=== PATIENT | male | born 1935 | race Caucasian/White ===

== ENCOUNTER 2020-09-19 10:12 | Inpatient (IN) | payer OTHER ==
[~2020-09-19] VITALS: Ht 182.9 cm; Wt 99.8 kg
--- NOTE | ~2020-09-19 | HC ---
[facility] [place] [address] CONSULTATION Name: KAM PÉREZ Room #: 455-P [facility]..#: [id number] Admission: 09/19/20 Attend Phys: Mic Guidry MD Discharge: Date of : 37 Report #: [id number] THIS REPORT FOR: cc: Sánchez Egan MD, Logan F. MD Smithson, David G. MD ~ DATE OF SERVICE: 09/20/2020 HISTORY OF PRESENT ILLNESS: The patient is an 84-year-old white male with a history of a prior right quadriceps ruptured tendon with subsequent total knee replacement and has had issues with a right tibial tuberosity fracture with nonunion. He was admitted and now has undergone right tibial tubercle osteotomy for prior instability with revision ORIF on 09/19/2020. He is limited to 50 pounds of weightbearing or less with a walker with a knee immobilizer and no range of motion. He had a prior left total knee replacement as well. We are seeing him in rehabilitation medicine consultation. PAST MEDICAL HISTORY: Includes right total knee replacement with revisions, left total knee replacement, insulin-dependent diabetes mellitus, peripheral neuropathy, BPH, mild asthma. He notes he has had a history of third third-degree heart block, hypertension, hyperlipidemia. MEDICATIONS: Please see the full medication listing. ALLERGIES: No known drug allergies. SOCIAL HISTORY: Lives in a house with his . No steps through the garage, but then there are 7 steps with a landing and then another 6 steps to get up to the main level. Once he gets up there, he has access to a bathroom, kitchen and can basically stay on that one floor. He notes that he has been to a detention facility in the past and absolutely does not want to return back to one. He also notes that the fire department has assisted in the past as far as getting him up to do stairs and he thinks that would likely be another possibility in the future if warranted. His is 5 feet 3 inches and could only give him some assistance. He feels that he could stay on one level as he further improves with his overall function. REVIEW OF SYSTEMS: Did not offer any current complaints of chest pain, shortness of breath or abdominal discomfort. PHYSICAL EXAMINATION: GENERAL: He is a pleasant 84-year-old white male in no obvious distress. VITAL SIGNS: Last recorded temperature 98.1, pulse 75, respirations 18, blood pressure 107/54. He is 6 feet, 220 pounds. NEUROLOGIC: Alert and pleasant, good historian. EXTREMITIES: Functional range of motion of both upper extremities, strength is [address] [address] CONSULTATION Name: KAM PÉREZ Room #: 455-P [facility] M.R.#: [id number] Admission: 09/19/20 Attend Phys: Mic Guidry MD Discharge: Date of : 37 Report #: [id number] grade 4/5. His lower extremities, he has the right lower extremity, knee immobilizer in place. He does have some decreased distal sensation of the right large toe with his peripheral neuropathy. Left lower extremity, no focal calf swelling. Appears to have good strength at least a grade 4 to 4-/5. Functionally, he is mod assist sit to stand, gait 15 feet min assist with a front-wheeled walker. Physical therapy notes that he needs to be watched closely, so he does not put too much weight on that right lower extremity. ASSESSMENT: An 84-year-old white male with the following problem list: 1. Right tibial tubercle osteotomy for prior instability, status post elective revision open reduction and internal fixation on 09/19/2020. Limited weightbearing 50 pounds with walker and a knee immobilizer and no range of motion. 2. Prior bilateral total knee replacements with three revisions of the right knee. 3. Insulin-dependent diabetes mellitus with some peripheral neuropathy. 4. Acute on chronic renal insufficiency. Last creatinine is 1.7. 5. The patient has a history of third-degree heart block. 6. Prior history of lumbar laminectomy. 7. Benign prostatic hypertrophy. 8. Mild asthma. PLAN: Occupational therapy is to evaluate. He is very motivated to improve as far as his overall functional mobility and ADLs and independence. He specifically does not desire to go to any type of detention facility. Would anticipate a short acute in-hospital inpatient rehabilitation stay to try to maximize his functional independence so he can hopefully return back to his prior living situation. He is an excellent historian and is a very motivated and very appropriate as far as maximizing his functional independence so that he can return back to the home setting. Insurance precertification issues are to be checked and we will be glad to follow along with you. By: [id number] Jose Gauthier MD /nt
[~2020-09-19 10:12] MED LIST: ATORVASTATIN CA10 MG PO; BASAGLAR K100 UNIT/1 SUBQ; CALCIUM 600 +1 EAC8 PO; FINASTERIDE5 MG PO; FLOVENT HFA12 GM INH; HYDROCHLOROTHIA25 M1 PO; METFORMIN HCL1000 MG PO; METOPROLOL SUCC50 MG PO; PRINIVIL40 MG PO; TAMSULOSIN HCL0.4 MG PO; TRULICITY1.5 MG/0.5 SUBQ
[2020-09-19 11:28] VITALS: BP 147/79
--- NOTE | 2020-09-19 13:08 | EKG ---
[address] [place] [address] ELECTROCARDIOGRAM REPORT Name: KAM PÉREZ Room #: [facility]..#: [id number] Admission: 09/19/20 Attend Phys: Mic Guidry MD Discharge: Date of : 37 Report #: [id number] [facility] Test Date: 2020-09-19 Test Time: 11:01:23 Pat Name: KAM PÉREZ Department: Room: Gender: M Custom Shoemaker: YAMILETH : 1935 Requested By: Maude Pozo Order Number: [id number] MD: Hung Adam Measurements Intervals [place] Rate: 94 P: NV: QRS: 121 QRSD: 148 T: -1 QT: 378 QTc: 473 Interpretive Statements Atrial fibrillation Nonspecific intraventricular conduction delay Minimal ST depression, anterior leads No previous ECG available for comparison Electronically Signed On 09-19-2020 13:08:34 CDT by Hung Adam [email or web address] <ELECTRONICALLY SIGNED> By: Hung Adam MD, [facility] 09/19/20 1308 1101 1101 Hung Adam MD, FACC /EPI
[2020-09-19 21:40] VITALS: BP 152/55
[2020-09-19 22:45] VITALS: BP 129/62
[2020-09-19 23:45] VITALS: BP 106/49
[2020-09-20] VITALS (7 sets, daily range): BP systolic 102–145; BP diastolic 46–69
--- NOTE | 2020-09-20 01:20 | NUR ---
Pt admitted from PACU APPROX 2144 post right knee revision. A/OX4,VSS,oxygen placed at 1L/NC to keep sats>92%. C/o pain to right knee with movement 08/26,medicated with Percocet and ice applied as needed. Aquacel dsg in place. Voiding per urinal,reports has dribbling and retention. Admission assessment done w/o any problems voiced. SCDs/Hank hose in place.Denies N/V. IVF infusing via left hand. Fall precautions in place. Afib on telemetry. Will continue to monitor pt.
[2020-09-20 03:14] LABS: HEMATOCRIT 32.5 % (42.0-52.0); HEMOGLOBIN 10.7 gm/dL (14.0-18.0); MCH 31.4 pg (26.0-34.0); MCV 95.3 fL (80.0-100.0); RBC 3.41 mil/uL (4.50-6.00); RDW 14.6 % (10.5-14.5); WBC 12.1 thou/uL (4.0-11.0)
[2020-09-20 03:39] LABS: CALCIUM 8.3 mg/dL (8.5-10.1); CREATININE 1.7 mg/dL (0.7-1.3); POTASSIUM 4.6 mmol/L (3.5-5.1)
--- NOTE | 2020-09-20 12:36 | NUR ---
Pt AXOX4 IV in left hand running 126ml/hr of NS. Wearing immobilizer on right knee. Aguacell dressing to right knee is C/D/I. Wearing thigh high teds hose. SCD on left leg. Uses urinal. Pt having knee pain in PT gave pain med to give relief. at bedside. Wearing immobilizer on right leg. Needs rehab consult. Active bowel sounds. Bed in low position. Fall precautions in place. Call light within reach. Will continue to monitor throughout shift.
--- NOTE | 2020-09-20 16:50 | NUR ---
PT ADMITTED RELATED TO RT TIBIAL TURERCLE TRANSFER. CM REVIEWED CHART AND SPOKE WITH CARE TEAM. CM MET WITH PT AND SPOUSE AT BEDSIDE THIS DAY. THEY INDICATED THEY RESIDE IN A HOUSE WITH 13 STEPS TO ENTER AND NONE ONCE INSIDE. PT INDICATED HE HAS A FWW, 4WW, AND CANE FOR HOME USE. PT INDICATED HE HAD BEEN INDEPENDENT WITH [employer]. PT INDICATED HE HAD OP PT, HH, AND SHORT TERM POST ACUTE CARE STAYS IN THE PAST THIS IS THE 4TH SURGERY ON HIS KNEE. HE HAD BEEN AT [facility] AND HAD A BAD EXPERIENCE THERE. PT AND SPOUSE EXPRESSED INTEREST IN 5N ACUTE INPATIENT REHAB. CM INDICATED THAT WITH [employer] AND DX PT LIKELY WOULDN'T GET AUTH. THEY WANTED TO BE ASSESSED AND TO TRY OTHERWISE THEY WANT TO GO HOME WITH HH. PT HAS 50 WB ON LE. 5N CONSULTED. CM FOLLOWING REGARDING DC PLANNING.
--- NOTE | 2020-09-21 01:37 | NUR ---
ASSUMED PT CARE AT 1905. PT IS LERT AND ORIENTED X4. PT HAS IMMOBIILIZER TO THE RLE WITH KNEE HIGH JUDI HOSE. DRSG TO THE INCISION SITE IS C/D/I. PT HAS SCD TO THE LLE. PT'S PAIN IS BEING MANAGED BY PRN PAIN MED. PT USES URINAL AND PT IS TOLERATING RA. PT DID NOT EXPRESS ANY CONCERNS AND NO VISIBLE SIGN OF DISTRESS WAS NOTED. FALL PRECAUTIION IN PLACE WITH CALL LIGHT WITHIN REACH. WILL CONTINUE TO MONITOR.
[2020-09-21 06:09] LABS: ABSOLUTE NEUTROPHILS 5.5 thou/uL (1.4-8.2); BASOPHILS 0.8 % (0.0-2.0); EOSINOPHILS 6.2 % (0.0-3.0); HEMATOCRIT 31.1 % (42.0-52.0); HEMOGLOBIN 10.7 gm/dL (14.0-18.0); LYMPHOCYTES 12.9 % (24.0-44.0); MCHC 34.3 g/dL (28.0-37.0); MCV 96.1 fL (80.0-100.0); MONOCYTES 15.2 % (1.0-8.0); PLATELET COUNT 222 thou/uL (150-400); POLYS 64.9 % (36.0-66.0); RBC 3.23 mil/uL (4.50-6.00); RDW 15.2 % (10.5-14.5); WBC 8.5 thou/uL (4.0-11.0)
[2020-09-21 06:22] LABS: CALCIUM 7.9 mg/dL (8.5-10.1); CREATININE 1.2 mg/dL (0.7-1.3); MAGNESIUM 1.7 mg/dL (1.8-2.4); POTASSIUM 4.2 mmol/L (3.5-5.1)
[2020-09-21 07:34] VITALS: BP 152/78
--- NOTE | 2020-09-21 11:23 | NUR ---
Pt is AXOX4 has an IV 20 guage in left hand SL. Right leg has an immobilizer. Has thigh high JUDI hose on. Aquacell dressing to right knee is C/D/I. Pt is NEZ PERCE. Trying to get placement in rehabilitation facility. Bed in low position fall precautions in place. Call light within reach. Will monitor until end of shift.
--- NOTE | 2020-09-21 13:29 | NUR ---
RECEIVED CALL FROM KARMEN AT [facility]. ACUTE REHAB AUTHORIZATION HAS BEEN DENIED BY BOTTOM WHEELER D/T LACK OF MEDICAL COMPLEXITY FOR DAILY PHYSICIAN OVERSIGHT. PEER TO PEER CAN BE COMPLETED BY NOON TOMORROW, 09/22/20, BY CALLING [phone] [employer] [facility]. REF # FOR CASE IS [id number]. KARMEN'S PHONE NUMBER IS [phone]. NOTIFIED CASE MGMT OF DENIAL.
--- NOTE | 2020-09-21 14:00 | NUR ---
RD consult. Admit for right knee revision, fracture tibial tuberosity. Hx diabetes, BG well controlled. Tolerating diet, no questions. Low nutrition risk identified
--- NOTE | 2020-09-21 14:32 | NUR ---
[facility] HAD SUBMITTED FOR INSURANCE AUTH YESTERDAY AND THEY RECIEVED A DENIAL THIS AFTERNOON. THERE IS AN OPTION FOR A PEER TO PEER. CM NOTIFIED PT AND PROVIDED HIM WITH A SNF LIST FOR REVIEW CARE TEAM ARE STILL RECOMMENDING POST ACUTE CARE STAY AND PT'S CAN'T MAINTAIN 50 WB STATUS. PT INDICATED HE WAS GOING TO WAIT TO DISCUSS WITH HIS TO IF THEY WANTED PEER TO PEER DONE AND OR WHAT FACILITIES THEY MIGHT BE INTERESTED IN. CM TO FOLLOW UP WITH PT AND SPOUSE.
[2020-09-21 15:37] VITALS: BP 152/75
[2020-09-21 20:07] VITALS: BP 123/59
--- NOTE | 2020-09-22 02:45 | NUR ---
PT CARE ASSUMED WITH PT IN CHAIR WATCHING TV.PT IS A/O X4.PT IS [employer]IT[employer] [place]AN[facility].PT IS UP WITH X2 ASSIST AND NON WEIGHT BEARING ON RT LEG.PT IS ACCUCHECK .PT HAS IMMOBILIZER ON LT LE AND TEDHOSE AND DRESSING I/C/D .PT C/O PAIN AND PAIN MANAGED WITH WITH OXYCODONE.PT HAD TEMP 99.1 AND TYLENOL GIVEN WITH RELIEF TO 98.4.PT USES URINAL .WILL CONTINUE TO MONITOR
[2020-09-22 05:49] LABS: HEMATOCRIT 28.8 % (42.0-52.0); HEMOGLOBIN 9.9 gm/dL (14.0-18.0); MCH 32.8 pg (26.0-34.0); MCHC 34.4 g/dL (28.0-37.0); MCV 95.3 fL (80.0-100.0); RBC 3.02 mil/uL (4.50-6.00); RDW 14.9 % (10.5-14.5); WBC 8.8 thou/uL (4.0-11.0)
[2020-09-22 08:33] VITALS: BP 134/68
--- NOTE | 2020-09-22 12:26 | NUR ---
PEER TO PEER COMPLETED BY HEENA BUTLER NP THIS MORNING. JAVA SYBASE DEVELOPER AT [facility] UPHELD DENIAL FOR ACUTE REHAB. CASE MGMT NOTIFIED.
--- NOTE | 2020-09-22 14:25 | NUR ---
5[facility] DIE CUTTER OPERATOR CALLED PEER TO PEER THIS AFTERNOON AND DENIAL WAS UPHELD. CM CALLED [facility] AND THEY INDICATED THEY ARE FULL UNTIL FRIDAY. CM CALLED [facility] AND THEY INDICATED THEY ARE UNDER NEW OWNERSHIP AND DON'T HAVE ANY MANAGED CARE CONTRACTS AT THIS MOMENT. CM REQUESTED AND RECEIVED PERMISSION FOR PT TO SEND REFERRAL TO [facility] AND TO [facility]. REFERRALS SENT. CM FOLLOWING REGARDING DC PLANNING.
--- NOTE | 2020-09-22 19:31 | O ---
[facility] [place] [address] OPERATIVE REPORT Name: KAM PÉREZ Room #: 455-P [facility] IN M.R.#: [id number] Admission: 09/19/20 Attend Phys: Mic Guidry MD Discharge: Date of : 36 Report #: [id number] THIS REPORT FOR: cc: Sánchez Egan MD, Logan F. MD McCabe,Mic Noriega MD ~ DATE OF SERVICE: 09/19/2020 SURGEON: Mic Guidry MD. WEIGHBRIDGE OPERATOR: Snehal jones NP INDICATIONS FOR WEIGHBRIDGE OPERATOR: Assistance with fracture reduction, provisional fixation, wound exposure and closure. PREOPERATIVE DIAGNOSES: 1. Right knee tibial tubercle nonunion. 2. Status post right total knee arthroplasty with revision and tibial tubercle osteotomy for recurrent patellar instability. 3. Status post prior right knee quadriceps tendon rupture and repair. 4. Hardware failure, right knee. 5. Diabetes. POSTOPERATIVE DIAGNOSES: 1. Right knee tibial tubercle nonunion. 2. Status post right total knee arthroplasty with revision and tibial tubercle osteotomy for recurrent patellar instability. 3. Status post prior right knee quadriceps tendon rupture and repair. 4. Hardware failure, right knee. 5. Diabetes. PROCEDURES: 1. Revision open reduction internal fixation of right tibial tubercle fracture. 2. Nonunion takedown with open bone grafting tibia. 3. Hardware removal, right tibia. COMPLICATIONS: None. DRAINS: None. SPECIMEN: Tissue and bone for culture. FINDINGS: 1. Fracture through partial osseous union, the lateral aspect of the osteotomy showed evidence of healing. The medial side had failed and there was fibrous tissue across the osteotomy interface. [facility] [address] [place] [address] OPERATIVE REPORT Name: KAM PÉREZ Room #: 455-P ADM IN M.R.#: [id number] Admission: 09/19/20 Attend Phys: Mic Guidry MD Discharge: Date of : 36 Report #: [id number] 2. Revision fixation with: Arthrex FiberTape x2, Gabriel and Nephew steel cerclage cable x2, Gabriel and Nephew stainless steel 4.7 mm noncannulated osteopenia screw. 3. Torrie 6.5 mm cannulated cancellous screw, stainless steel. 4. Columbia BIO4 allograft bone graft packed around the osteotomy site. 5. No evidence of deep space infection around the prosthesis. 6. The patella remained reduced throughout the procedure. HISTORY AND INDICATIONS: The patient is an 84-year-old gentleman who has a complicated history related to his right knee. 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 He had a total knee replacement that readily showed knee arthritis pain, but he developed patellar instability and required revision of the patellar component to the medialized the patella and underwent medial patellofemoral ligament reconstruction, but had an episode leading to failure of this and so he required a bony procedure and with the revision patellar realignment procedure underwent revision MPFL reconstruction with lateral release and a medializing tibial tubercle osteotomy. He presented to the clinic approximately 8 weeks postop with evidence of proximal migration of the osteotomy. We obtained a CT scan and flow to his rehabilitation in an effort to allow the osteotomy to heal. He also received a bone stimulator, which was denied by insurance, but we were able to arrange for him in [facility] program many years. This all in an effort to delay any surgical intervention long enough for the osteotomy to heal. The CT scan showed partial union on the lateral aspect of the knee and he was progressing well. Ultimately, however, he presented to clinic last week with evidence of catastrophic failure of his osteotomy with fracture of the 2 screws and a complete displacement of the osteotomy itself. He was therefore indicated for revision fixation. Risks, benefits, alternatives and indications for the surgery were again reviewed with him and his . He understands with his cardiac history that there continues to be risk with repeat anesthetic episodes; however, this is a necessary surgery. Despite the risks, he wished to proceed with procedure. PROCEDURE IN DETAIL: After right lower extremity was correctly identified, the operative extremity, he underwent regional nerve block, he was then taken to the operating room where general anesthesia was induced without complications. He was padded appropriately. Prophylactic antibiotics were administered in appropriate time. The right leg was then prepped and draped in standard sterile fashion. Timeout procedure performed. Esmarch were used, tourniquet inflated to 300 mmHg. Total tourniquet time was 120 minutes. Anterior approach was made utilizing approximately 3/4 of the previous incision. Full thickness skin flaps were developed. Hemostasis was achieved. There was [address] [address] OPERATIVE REPORT Name: KAM PÉREZ Room #: 455-P ADM IN M.R.#: [id number] Admission: 09/19/20 Attend Phys: Mic Guidry MD Discharge: Date of : 36 Report #: [id number] some fluid in the prepatellar bursa and some fibrous tissue noted, but there was no evidence of infection. The fluid was evacuated. The osteotomy had shown clear evidence of failure. There was no hematoma present and there was a fibrous union at the osteotomy as well as partial osseous union laterally that had evidently fractured at the time of the displacement. The screws were loose and fractured and so the proximal half of the screws were removed from the osteotomy segment and the distal portions of the screw or the posterior portions of the screws were left in place with no effort to remove them as they are not currently problematic and I planned to work around this fixation. The prior fixation construct also had two Arthrex FiberTape cerclage stitches placed in addition to the 2 titanium 4.5 mm screws and these were removed. There were 2 mm transverse drill holes that had been made anterior to the tibial component and I planned to reuse. The curette was used to curettage the two transverse holes for a cable passage. After the exposure was then completed, I then used a Pleitez elevator and a curette to thoroughly debride the osteotomy nonunion and took a specimen of cancellous bone and fibrous union tissue from the screw hole on the tibia for cultures. A thorough debridement was performed. All fibrous tissue was removed such that only bone could be seen on both the osteotomy segment as well as the tibial side. I evaluated the osteotomy; it turned out there was a longitudinal split that the osteotomy into basically a lateral quarter and medial three quarters with an additional component being the 2 large screw holes that had been made with a countersink and then fractured through. I was concerned about the bone quality for fixation of the osteotomy and the preoperative plan had called for 2 cables, but one of which would be used on the distal side and placed around a screw head on the tubercle; however, this clearly would not able to be performed because of the fracture. ArthSecure Outcomes FiberTape was then used to perform a Mullin stitch starting the quadriceps tendon and working distally with a Mullin medially and lateral to the patella all the way down to the tibial tubercle. A second stitch was placed in a similar fashion just in the patellar tendon, allowing for a total of four limbs of Mullin suture with the strongest suture available being the FiberWire tape implant. There were two tails on both sides and I passed one limb of each tail through the transverse hole in the tibia while crossing them over the anterior aspect of the patellar tendon and tubercle. These would be tied later with the patellar tendon suture through the proximal hole and the quadriceps tendon suture through the distal hole. The crossing suture technique allowed for a tension band construct. I also pre-passed cerclage cables, one through the distal hole with the plan of it being used for direct decompression of the distal aspect of the osteotomy and then a second one placed through the proximal hole, but first passed above the osteotomized segment [address] [address] OPERATIVE REPORT Name: KAM PÉREZ Room #: 455-P [facility] IN M.R.#: [id number] Admission: 09/19/20 Attend Phys: Mic Guidry MD Discharge: Date of : 36 Report #: [id number] behind the patellar tendon and anterior to the retropatellar tendon soft tissue. This would be used as reducing force to bring the osteotomy down to its anatomic position. The goal with the fixation was to separate the distalizing force vector from the compressive force vector and allow for screws to serve simply in a compression fashion and cables and sutures to serve in a distalizing fashion with the hopes that this would allow for a more structurally sound healing environment for this very large gentleman of older age and diabetic condition. In addition, we were planning for bone grafting to address the biologic component of the nonunion. After the cables were preplaced, they were slowly and sequentially tensioned. The knee was placed into approximately 20 degrees of flexion. I confirmed that the osteotomy was being held in a reduced fashion and then placed a K wire with a cross-table lateral and placed to confirm that the osteotomy could be adequately held. The sutures were tensioned and then held with temporary fixation with a hemostat and the cables were initially tensioned under manual tension and then provisionally locked. I then used a cross table lateral as well as the AP x-ray to determine the optimal position for screws and I did feel like the larger segment of the osteotomy would accept at least 2 screws. I elected for the Gabriel and Nephew 4.7 mm stainless steel noncannulated osteoporotic screw and this provided the most and the largest screws for purchase on the posterior cortex while also allowing for two screw fixation providing better force distribution. We ultimately placed two of these. The trajectory did have to be planned carefully in order to avoid the tibial component, the cement mantle and the previous 2 fractured screws. These were placed in a lag fashion, drilling through the posterior cortex and then overdrilling the near cortex and countersinking the osteotomy for the screw head. The osteotomy segment was thick enough to allow countersinking while maintaining cortical purchase on the near segment. These were placed in a standard fashion sequentially tightening each screw or maintaining the osteotomy in a reduced fashion and direct visualization could be seen allowing for reduction of the osteotomy as planned preoperatively and also allowing for compression at the distal side of the osteotomy itself. The proximal side was still displaced anterior to posterior fashion, but was in its appropriate position proximally to distally. We also did confirm that this was provisionally fixed medialized to allow for the original mechanical benefits of the TTO on the patella itself, which was the original reason for the osteotomy. I then sequentially tensioned the two cables and first utilized a provisional fixation with the cables and then used the tensioning device to compress the osteotomy distally and then also placed tightening the proximal cable and this force vector provided a very direct compressive force to maintain the distal position of the osteotomy, but also served to compress proximally. There was still some bone on the more proximal aspect of the osteotomy fragment that was satisfactory for additional screw fixation. I used the previous drill hole, which [facility] [address] [place] [address] OPERATIVE REPORT Name: KAM PÉREZ Room #: 455-P [facility] IN M.R.#: [id number] Admission: 09/19/20 Attend Phys: Mic Guidry MD Discharge: Date of : 36 Report #: [id number] had enlarged slightly from the displacement previously and I overdrilled and then placed a Torrie 6.5 mm x 50 mm cannulated stainless steel screw, which achieved excellent purchase. I did manually utilized the countersink to ensure that this was bevelled appropriately and on the x-ray, we could see the complete compression at the proximal aspect of the osteotomy. I then tightened the distal screws as well and was very happy with the appearance of the fixation. At this point, the FiberTape stitches were tied x2, both proximally and distally and this further unloaded the cable fixation for force distribution. At this point, we packed approximately 10 mL of Columbia BIO4 bone graft along both the lateral and medial aspect of the osteotomy and then as well across the front at the distal part of the osteotomy as well as over into the previous screw holes and anywhere that there was bony fixation and bony union needed. The tourniquet had been let down during the fixation portion of the procedure and there was seen to be good bleeding in the knee. A 0 Vicryl suture was then used to repair the arthrotomy after the arthrotomy itself was then thoroughly irrigated with the pulsatile lavage and the anterior aspect of the knee had been lavaged and irrigated as well prior to placing the bone graft. The arthrotomy was closed over a gram of vancomycin powder and then the soft tissue was closed over the osteotomy distally and the skin was closed with 2-0 Vicryl followed by running subcuticular 3-0 Monocryl and Dermabond. A waterproof sterile dressing was applied followed by compression stocking, knee immobilizer was placed and the patient was awakened from anesthesia and taken to recovery room in stable condition. There were no complications. All counts were correct. POSTOPERATIVE PLAN: Will be 50 pounds weightbearing for 4-6 weeks. If he shows evidence of bony healing early, we will advance his weightbearing, but otherwise plan for the 6 weeks. His range of motion at the osteotomy was stable to at least 45 degrees of flexion intraoperatively; we did not flex him further at this point during the surgery, but we will allow for 0-15 degrees range of motion and advancing approximately 10-15 degrees per week, likely starting at 4 weeks. Again, depending on his progress with recovery. Therefore for ROM: flexion, no further than 45 degrees for the first 6 weeks. He understands that stiffness is a likely outcome of this, but if it leads to union and stability in the knee, it will be a successful endeavor. <ELECTRONICALLY SIGNED> By: Mic Guidry MD 09/22/201930 08 31 Mic Guidry MD /nt
[2020-09-22 19:47] VITALS: BP 136/82
--- NOTE | 2020-09-22 20:09 | NUR ---
I AGREE W/ ASSESSMENT PER JANELLE GERBER LPN.
--- NOTE | 2020-09-22 20:09 | NUR ---
ASSUMED CARE OF PATIENT AT SHIFT CHANGE. ASSESSMENT CHARTED. MEDICATIONS ADMINISTERED PER EMAR. VSS. PATIENT IS A&OX4 AND MAKES NEEDS KNOWN. WORKED WITH PT/OT AND DID WELL. PATIENT TOLERATING PO INTAKE WELL & HAD A BM THIS DAY. PATIENT WAS DEEMED MEDICALLY STABLE AND WILL D/C TO [facility] TOMORROW; SEE CM NOTES. ENDORSED TO TIMMY RN
--- NOTE | 2020-09-23 02:46 | NUR ---
PT CARE ASSUMED WITH PT IN CHAIR WATCHING TV AT SHIFT CHANGE.PT IS A/O X4.PT IS UP WITH X2 ASSIST AND NON WEIGHT BEARING ON RT FOOT.PT HAS A RIGHT FOOT KNEE IMMOBILIZER AND DRESSING IN PLACE WITH TEDHOSE.PT C/O PAIN AND PAIN MANAGED WITH PERCOCET.PT ON ROOM AIR.IV ACCESS SL.WILL CONTINUE TO MONITOR
[2020-09-23 07:56] VITALS: BP 135/70
[2020-09-23] MEDS ORDERED: XARELTO10 MG PO ×2 (11:36)
[2020-09-23] MEDS ORDERED: PERCOCET PO ×2 (11:36)
[2020-09-23] MEDS ORDERED: ACETAMINOPHEN325 M1 PO ×2 (11:39)
--- NOTE | 2020-09-23 12:09 | NUR ---
FAXED DISCHARGE ORDERS AND SUMMARY TO [facility]. WAITING ON COVID RESULT THEN WILL FAX TO FACILITY. CONFIRMED WITH KUSHAL/ADMISSIONS THAT DOCUMENTS SENT AND COVID RESULT TO FOLLOW. TRANSPORTATION ARRANGED TENTATIVELY WAIT[facility] FOR [facility]:30. CHART COPY REQUESTED. *KUSHAL/ADMISSIONS AIRPLANE PILOT SUPERVISOR THIS WEEKEND FOR [facility] P [phone]; FAX [phone]; M [phone]
--- NOTE | 2020-09-23 13:19 | NUR ---
ASSUMED CARE OF PATIENT AT SHIFT CHANGE. ASSESSMENT CHARTED. MEDICATIONS ADMINISTERED PER EMAR. VSS. PATIENT IS A&OX4 AND ABLE TO MAKES NEEDS KNOWN. PATIENT IS UP X1 AND TRIES VERY HARD TO ONLY BEAR WEIGHT ON HIS L LEG. PATIENT CONTINUES TO HAVE REGULAR BOWEL MOVEMENTS WITH NO ISSUES. PATIENT REMAINS MEDICALLY STABLE FOR DISCHARGE; TRANSPORT ARRANGED FOR 1530 THIS DAY. NO FURTHER ISSUES. WILL CONTINUE TO MONITOR UNTIL DISCHARGE
--- NOTE | 2020-09-23 13:54 | NUR ---
CONFIRMED WITH KUSHAL/LIAISON AT [facility] AND SPOKE WITH JENAE- REGARDING CURRENT COVID PROTOCOL FOR VISITORS. NO VISITORS ALLOWED AT THIS TIME. ALL ROOMS ARE ON THE GROUND LEVEL AND ROOM NUMBERS POSTED ON THE OUTSIDE OF THE BUILDING FOR VISITORS TO COME TO THE WINDOWS. PATIENT WILL BE IN ROOM 328 AND RELAYED THIS INFORMATION TO .
[2020-09-24] MEDS ORDERED: ONDANSETRON HCL4 M2 PO ×2 (21:25)
== END 2020-09-23 15:42 | DRG 463 ==
LOC: OR 10:12 → 4W 21:25 → OR 21:43 → 4W 21:43
PROVIDERS: Nurse Practitioner; ADMIT Orthopaedic Surgery Sports Medicine; ATTEND Orthopaedic Surgery Sports Medicine
DX: S82.151A Displaced fracture of right tibial tuberosity, initial encounter for closed fracture (principal); N17.0 Acute kidney failure with tubular necrosis; R65.11 Systemic inflammatory response syndrome (SIRS) of non-infectious origin with acute organ dysfunction; E78.5 Hyperlipidemia, unspecified; N18.9 Chronic kidney disease, unspecified; E11.22 Type 2 diabetes mellitus with diabetic chronic kidney disease; I12.9 Hypertensive chronic kidney disease with stage 1 through stage 4 chronic kidney disease, or unspecified chronic kidney disease; E86.0 Dehydration; N40.0 Benign prostatic hyperplasia without lower urinary tract symptoms; J45.909 Unspecified asthma, uncomplicated; E11.42 Type 2 diabetes mellitus with diabetic polyneuropathy; Z20.822 Contact with and (suspected) exposure to COVID-19; Y92.89 Other specified places as the place of occurrence of the external cause; Y93.89 Activity, other specified; Y99.8 Other external cause status
CPT/HCPCS: 10045; 50010; 50101; 50415; 50954; 53078; 54118; 56521; 56526; 56527; 56528; 57103; 57180; 58942; 58944; 58945; 58946; 58947; 58948; 58949; 62110; 62900; 70005

== ENCOUNTER 2020-09-24 17:56 | Inpatient (IN) | payer OTHER ==
[~2020-09-24] VITALS: Ht 182.9 cm; Wt 102.1 kg
[~2020-09-24 17:56] MED LIST changes: +ACETAMINOPHEN325 M1 PO; +PERCOCET PO; +XARELTO10 MG PO
[2020-09-24 18:06] VITALS: BP 158/7; BP 158/72
[2020-09-24 18:33] LABS: ABSOLUTE NEUTROPHILS 9.8 thou/uL (1.4-8.2); BASOPHILS 0.5 % (0.0-2.0); EOSINOPHILS 0.3 % (0.0-3.0); HEMATOCRIT 29.6 % (42.0-52.0); HEMOGLOBIN 10.1 gm/dL (14.0-18.0); LYMPHOCYTES 6.2 % (24.0-44.0); MCH 31.9 pg (26.0-34.0); MCHC 34.1 g/dL (28.0-37.0); MCV 93.6 fL (80.0-100.0); MONOCYTES 5.8 % (1.0-8.0); POLYS 87.2 % (36.0-66.0); RBC 3.17 mil/uL (4.50-6.00); RDW 14.3 % (10.5-14.5); WBC 11.2 thou/uL (4.0-11.0)
[2020-09-24 18:39] LABS: PLATELET COUNT 311 thou/uL (150-400)
[2020-09-24 18:48] LABS: CALCIUM 8.8 mg/dL (8.5-10.1); CREATININE 1.2 mg/dL (0.7-1.3); POTASSIUM 4.3 mmol/L (3.5-5.1)
[2020-09-24 18:50] LABS: APTT 32.8 Seconds (24.5-32.8); INR 1.17; PROTIME 12.7 Seconds (10.5-12.1)
[2020-09-24 18:55] LABS: ALBUMIN 2.9 g/dL (3.4-5.0); TOTAL BILIRUBIN 0.8 mg/dL (0.2-1.0); TOTAL PROTEIN 7.2 g/dL (6.4-8.2)
[2020-09-24] MEDS ORDERED: ONDANSETRON HCL4 M2 PO ×2 (21:25)
[2020-09-25 05:23] LABS: HEMATOCRIT 23.6 % (42.0-52.0); MCH 31.8 pg (26.0-34.0); MCHC 33.8 g/dL (28.0-37.0); RBC 2.51 mil/uL (4.50-6.00); RDW 14.2 % (10.5-14.5); WBC 9.5 thou/uL (4.0-11.0)
[2020-09-25 05:47] LABS: CALCIUM 8.4 mg/dL (8.5-10.1); CREATININE 1.3 mg/dL (0.7-1.3); POTASSIUM 4.6 mmol/L (3.5-5.1)
--- NOTE | 2020-09-25 07:10 | NUR ---
TOOK OVER CARE FROM SIRISHA MALDONADO AT THIS TIME. SIRISHA MALDONADO GAVE PT SPOUSE UPDATE VIA PHONE PRIOR TO LEAVING SHIFT
--- NOTE | 2020-09-25 07:35 | EKG ---
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: jchaibailee : 1935 Requested By: Oli Carballo Order Number: [id number] MD: Hung Adam Measurements Intervals [place] Rate: 101 P: -32 MO: 178 QRS: 40 QRSD: 135 T: -3 QT: 378 QTc: 490 Interpretive Statements AFIB Right bundle branch block Compared to ECG 09/19/2020 11:01:23 Sinus pause or arrest now present Right bundle-branch block now present Intraventricular conduction delay no longer present ST (T wave) deviation no longer present Electronically Signed On 09-25-2020 7:35:09 CDT by Hung Adam [email or web address] <ELECTRONICALLY SIGNED> By: Hung Adam MD, FAC 09/25/20 0735 21 21 Hung Adam MD, [facility] /EPI
--- NOTE | 2020-09-25 07:49 | NUR ---
CARDIOLOGY AT BEDSIDE AT THIS TIME
--- NOTE | 2020-09-25 07:50 | NUR ---
PT SPOUSE AT BEDSIDE
--- NOTE | 2020-09-25 09:16 | NUR ---
GI AT BEDSIDE AT THIS TIME
--- NOTE | 2020-09-25 09:59 | NUR ---
REPORT GIVEN TO SIRISHA LIM AT THIS TIME
[2020-09-25 11:00] VITALS: BP 116/51
--- NOTE | 2020-09-25 14:32 | NUR ---
On 09-25-20 the patient arrived at the ED as a 84 year old male who came with abdominal pain and hematemesis. Patient was recently discharged on 09/23/20. After elective revision fixation of right tibial tubercle nonunion with Dr. Guidry on 09/19/20. Patient started on Xarelto after surgery. The patient was admitted for Hematemesis suspect UGI Bleed and ordered to be on PPI IV and planned EGD. Per ED assessment the patient is A&O x4 and shows with a negative ID Now test and stating vaccination with Moderna complete. The patient was discharged on 09-23-20 to [facility] for skilled level of care following a Revision fixation R tibial tubercle nonunion. Patient normally lives at home with spouse who is listed as next of kin: Jennifer Lopez at H [phone] and call [phone]. CM will follow for discharge planning as medical care team establish identified discharge needs as care continues.
--- NOTE | 2020-09-25 15:33 | NUR ---
ATTEMPTED TO CALL REPORT TO FLOOR WAS NOTIFIED RN AND CHARGE NOT AVAILABLE FOR REPORT PER CHRISTIAN. WILL CALL BACK IN 10 MINUTES.
[2020-09-25 16:20] VITALS: BP 113/59
--- NOTE | 2020-09-25 19:05 | NUR ---
PATIENT ARRIVED AT 1620; REORIENTED TO ROOM; IVFLUIDS HUNG. ON CLR LIQUIDS AND AWARE. VITALS STABLE. ENDORSED TO CHARGE NURSE
[2020-09-25 20:30] VITALS: BP 121/56
--- NOTE | 2020-09-26 02:23 | NUR ---
PT CARE ASSUMED WITH PT IN BED WITH AT BEDSIDE AT SHIFT CHANGE.PT IS A/O X4.PT IS UP WITH X2 ASSIST AND HAS A RT LEG IMMOBILIZER AND DRESSING ON RT KNEE I/C/D.PT DENIED NAUSEA AND VOMITING AND DIARRHEA.IV ACCESS IB LT HAND WITH NS AT 80CC/HR.PT IS ON CLEAR FLUID DIET.PT USES A URINAL TO VOID.PT APPEAR TO BE IN NO DISTRESS.WILL CONTINUE TO MONITOR
[2020-09-26 07:35] VITALS: BP 118/55
--- NOTE | 2020-09-26 08:44 | NUR ---
Consult: S/p R knee sx 09/19, dc'd 09/23. Pt admit 09/24 with GI bleed, EGD performed. Findings of suspected Mallry-Christian tear, now clotted off with no active bleeding present. Diet advanced to clear liquids. On [facility] diet on last admission with 100% intakes noted. Weight stable. Phycisian noted protein calorie malnutrition, defer dx. Follow diet advance as tolerated. Low nutrition risk at this time.
[2020-09-26 11:22] LABS: HEMATOCRIT 21.1 % (42.0-52.0)
--- NOTE | 2020-09-26 14:34 | P ---
[facility] [place] [address] PROCEDURE REPORT Name: KAM PÉREZ Room #: 450-P ADM IN M.R.#: [id number] Admission: 09/24/20 Attend Phys: Abebe Santacruz Discharge: Date of : 37 Report #: [id number] THIS REPORT FOR: cc: Sánchez Egan MD, Logan F. MD McElhinney, Christian C. MD ~ cc: Mic Guidry MD, Abebe Finnegan MD DATE OF SERVICE: 09/25/2020 PROCEDURE PERFORMED: Upper endoscopy. HISTORY OF PRESENT ILLNESS: The patient is an 84-year-old male with recent orthopedic procedure on his right lower extremity on 09/19/2020. He was transferred to rehabilitation unit on Friday. The patient became nauseated and had several episodes of vomiting, started with dark red emesis. He had multiple episodes of coffee-ground and red type material. No previous history of heartburn, upper endoscopy, abdominal pain. No previous history of GI bleed. He was taking narcotics, but several days just postoperatively, he had been on Advil recently as well. He denies any dysphagia or odynophagia. He was placed on Xarelto postoperatively. His admit hemoglobin was 10.1, hemoglobin today has dropped to 8.0. He is on Protonix at this time b.i.d. Plan is for upper endoscopy. DESCRIPTION OF PROCEDURE: The risks and benefits of the procedure were explained to the patient, those risks including but not limited to bleeding, perforation and the risk of sedation. He understood these risks and gave informed consent. Sedation was given using propofol per anesthesia. Next, using a standard Olympus upper endoscope, the scope was placed in the patient's mouth and advanced under direct vision through the esophagus, stomach and into the second portion of the duodenum. The larynx was normal in appearance. The upper and mid esophagus was normal. In the distal esophagus at the GE junction, there was grade B erosive esophagitis, also noted was a clot at the GE junction was approximately 1 cm. I suspect this is due to a recent Emmy-Christian tear, which is now nonbleeding. Due to the location and the fact there was no evidence of bleeding, I did not feel like endoclip would be helpful at this point. The scope was advanced into the patient's stomach. Overall, the gastric mucosa was normal. The pylorus was normal and patent. The duodenal bulb, first and second portion were all normal. The scope was then withdrawn and the procedure terminated. The patient tolerated the procedure well. IMPRESSION: 1. Grade B erosive esophagitis, likely secondary to reflux. 2. Likely Emmy-Christian tear, likely source of recent gastrointestinal bleed, now with clot in place. No active bleeding at this time. 3. Otherwise, normal upper endoscopy. [address] [address] PROCEDURE REPORT Name: KAM PÉREZ Room #: 450-P [facility] IN M.R.#: [id number] Admission: 09/24/20 Attend Phys: Abebe Santacruz Discharge: Date of : 37 Report #: [id number] RECOMMENDATIONS: 1. Continue b.i.d. PPI therapy. 2. We will add liquid Carafate at this time. 3. We will start with clear liquid diet and advance diet slowly and continue to monitor hemoglobin closely. 4. Continue to hold anticoagulation. Thank you for allowing me to participate in his care. <ELECTRONICALLY SIGNED> By: Jayesh Hobson MD 09/26/20 [id number] Jayesh Hobson MD /nt
--- NOTE | 2020-09-26 14:39 | NUR ---
PT ADMITTED RELATED TO GI BLEED. CM REVIEWED CHART AND SPOKE WITH CARE TEAM. CM MET WITH PT AT BEDSIDE THIS DAY. PT APPEARED TO BE A&O X4. CM ROLE INTRODUCED. PT IS FAMILIAR TO CM PT HAD DISCHARGED TO [facility] SKILLED SATURDAY 09/23. PLAN IS FOR PT TO RETURN TO [facility] TO CONTINUE SKILLED POST ACUTE CARE STAY ONCE MEDICALLY STABLE. CM SPOKE WITH LIAISON THIS AM SHE IS AWARE. CM FAXED OVER CLINICAL. PT IS AGREEABLE. PT HAD EGD YESTERDAY AND HAD DIET ADVANCED THIS DAY IN ANTICIPATION OF POSSIBLE DC BACK TO [facility] TOMORROW. CM FOLLOWING REGARDIGN DC PLANNING.
[2020-09-26 15:35] VITALS: BP 127/55
--- NOTE | 2020-09-26 15:56 | NUR ---
Assumed pt care at 7am.Pt in bed resting without c/o.Assessment completed.vss. Am meds given with breakfast and well tolerated.Dr Santacruz here,order noted. Family here to visit and updates given.Repositioned pt in bed for comfort. Knee immobilizer to rt knee. No verbal c/o. Will continue to monitor.
[2020-09-26 20:38] VITALS: BP 131/46
[2020-09-26 20:39] VITALS: BP 131/53; BP 146/56
--- NOTE | 2020-09-27 03:40 | NUR ---
ASSUMED CARE OF PT AT SHIFT CHANGE. PT IS AOX4 AND LETS NEEDS BE KNOWN. FALL PRECAUTION IN PLACE. ASSESSMENT CHARTED. PT DENIED PAIN, NAUSEA OR SOA. 1 UNIT PRBC GIVEN; NO REACTIONS NOTED. PT WAS ABLE TO GET COMFORTABLE AND SLEEP PART OG THE SHIFT. VSS AND NO S/S OF ACUTE DISTRESS. WILL CONTINUE TO MONITOR.
[2020-09-27 04:48] LABS: HEMOGLOBIN 8.3 gm/dL (14.0-18.0); MCHC 34.6 g/dL (28.0-37.0); MCV 92.6 fL (80.0-100.0); RBC 2.59 mil/uL (4.50-6.00); RDW 14.9 % (10.5-14.5); WBC 9.7 thou/uL (4.0-11.0)
[2020-09-27 07:25] VITALS: BP 138/70
[2020-09-27] MEDS ORDERED: CARAFATE 11 GM/10 M1 PO ×2 (08:36)
[2020-09-27] MEDS ORDERED: PROTONIX40 M2 PO ×2 (08:36)
[2020-09-27] MEDS ORDERED: IRON325 M1 PO ×2 (08:52)
--- NOTE | 2020-09-27 11:27 | NUR ---
PHYSICIAN HAD ENTERED ORDERS FOR DC BACK TO [facility] SKILLED THIS DAY, BUT DC WAS CANCLED PT HAD SOME BLEEDING THIS WITH BM THIS AM. BLEEDING SCAN ORDERED. CM NOTIFIED PT AND SPOUSE WHO WAS AT BEDSIDE AND THEY ARE AWARE AND AGREEABLE. CM NOTIFIED [facility] HAD BEEN ARRANGED FOR 12:00. CM FOLLOWING REGARDING DC PLANNING.
[2020-09-27 13:28] VITALS: BP 139/79
[2020-09-27 13:54] LABS: HEMOGLOBIN 8.9 gm/dL (14.0-18.0)
--- NOTE | 2020-09-27 16:06 | NUR ---
ASSUMED CARE OF PATIENT AT SHIFT CHANGE, ASSESSMENT CHARTED. MEDICATIONS ADMINISTERED PER EMAR. VSS. PATIENT IS A&OX4 AND ABLE TO MAKE NEEDS KNOWN. MELENA NOTED IN STOOL; PROVIDER NOTIFIED & CANCELLED PENDING DISCHARGE. PATIENT VOICED ANXIETY BUT LATER EXPRESSED RELIEF W NEGATIVE RESULTS & INCREASING HEMOGLOBIN. PATIENT WILL BE ABLE TO RETUEN TO [facility]. AWAITING TRANSPORT TIMES. WILL CONTINUE TO MONITOR AND AWAIT NEW ORDERS
[2020-09-27 16:51] VITALS: BP 148/46
--- NOTE | 2020-09-27 17:08 | NUR ---
GI TEAM NOTED ABNORMAL FINDINGS; DISCHARGE HELD.
--- NOTE | 2020-09-27 18:36 | NUR ---
PATIENT WAS DISCHARGED BACK TO [place] of op. report CALLED
== END 2020-09-27 18:34 | DRG 369 ==
LOC: ER 17:56 → EROBS 22:05 → 4W 22:05
PROVIDERS: Emergency Medicine; Nurse Practitioner Family; ADMIT Hospitalist; ATTEND Hospitalist
PROC: 0DJ08ZZ Inspection of Upper Intestinal Tract, Via Natural or Artificial Opening Endoscopic (ICD-10-PCS; principal; 2020-09-25)
PROC: 30233N1 Transfusion of Nonautologous Red Blood Cells into Peripheral Vein, Percutaneous Approach (ICD-10-PCS; 2020-09-26)
DX: K22.6 Gastro-esophageal laceration-hemorrhage syndrome (principal); E46 Unspecified protein-calorie malnutrition; K22.11 Ulcer of esophagus with bleeding; Z20.822 Contact with and (suspected) exposure to COVID-19; E78.5 Hyperlipidemia, unspecified; Z96.653 Presence of artificial knee joint, bilateral; N40.0 Benign prostatic hyperplasia without lower urinary tract symptoms; E11.65 Type 2 diabetes mellitus with hyperglycemia; J45.909 Unspecified asthma, uncomplicated; I10 Essential (primary) hypertension; Z79.1 Long term (current) use of non-steroidal anti-inflammatories (NSAID); Z88.8 Allergy status to other drugs, medicaments and biological substances; Z79.4 Long term (current) use of insulin; Z79.899 Other long term (current) drug therapy; Z68.30 Body mass index [BMI] 30.0-30.9, adult
CPT/HCPCS: 10045; 62110; 62900; 70005